=== PATIENT | male | born 1965 | race Caucasian/White ===

== ENCOUNTER 2016-09-30 10:52 | Emergency (ER) | payer OTHER ==
[~2016-09-30] VITALS: Ht 172.7 cm; Wt 69.5 kg
[2016-09-30] MEDS ORDERED: KETOROLAC 60 MG/2 ML VIAL (J1885) IM ONE (11:30)
[2016-09-30] MEDS ORDERED: NAPR500T3 PO (12:07)
[2016-09-30] MEDS ORDERED: TYLE325T5 PO (12:08)
[2016-09-30 12:45] VITALS: BP 149/94
--- NOTE | 2016-10-02 16:04 | REP ---
PA CHEST WITH RIGHT RIBS: 09/30/2016: Clinical history: Right-sided rib pain. Findings. No prior study. PA chest: Lungs are well inflated. The CP angles sharply defined. There is no effusion, infiltrate, atelectasis or mass. Minor apical scarring noted. Heart, mediastinal, hilar contours normal. Airway intact. Visualized bones show no acute finding. Right ribs: Four views of the right ribs show posterior rib articulations, visualized thoracic spine, clavicle, scapula and humerus without fracture or focal lesion. The abnormality with rib contours grossly intact as visible on all projections. No effusion or pneumothorax. Impression: 1. There is no visible or displaced rib fracture, focal rib lesion, effusion or pneumothorax. Posterior articulations are intact and minor degenerative changes at the AC joint. 2. PA chest with no acute finding. Signed by Spencer Thornton MD 10/02/2016 05:11 P
== END 2016-09-30 12:43 | disposition home or self-care (01) ==
LOC: M ED 10:52
DX: M94.0 Chondrocostal junction syndrome [Tietze] (principal); Z72.0 Tobacco use
CPT/HCPCS: 71101; 94010; 96372; 99282; J1885

== ENCOUNTER 2020-05-04 12:23 | Emergency (ER) | payer OTHER ==
[~2020-05-04] VITALS: Ht 177.8 cm; Wt 67.8 kg
[~2020-05-04 12:23] MED LIST: NAPR-885 PO; TYLE325T5 PO
[2020-05-04] MEDS ORDERED: ISOVUE-370 76% 100ML VIAL As Ordered ONE (13:18)
[2020-05-04 13:30] LABS: BASO # 0.1 10^3/uL (0.0-0.2); BASO % 1.6 % (0.0-1.0); EOS # 0.1 10^3/uL (0.0-0.5); EOS % 1.8 % (0.0-3.0); HEMATOCRIT 41.6 % (42.0-52.0); HEMOGLOBIN 14.7 g/dl (13.5-17.5); LYMPH # 1.5 10^3/uL (1.5-5.0); LYMPH % 27.4 % (24.0-44.0); MEAN CORPUSCULAR HEMOGLOBIN 35.1 pg (27.0-33.0); MEAN CORPUSCULAR HGB CONC 35.3 g/dl (32.0-36.5); MEAN CORPUSCULAR VOLUME 99.3 fl (80.0-96.0); MONO # 0.8 10^3/uL (0.0-0.8); PLATELET COUNT, AUTOMATED 205 10^3/uL (150-450); RED BLOOD COUNT 4.19 10^6/uL (4.30-6.10); WHITE BLOOD COUNT 5.5 10^3/uL (4.0-10.0)
--- NOTE | 2020-05-04 13:44 | REP ---
INDICATION: flank pain. COMPARISON: None. TECHNIQUE: Helical scanning was acquired and 4 mm axial images are re-formatted. Coronal and sagittal MPR images were generated and reviewed. The contrast enhancement dose is 100 mL of intravenous Isovue 370. 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 Lung bases are clear on axial CT images. There is no evidence of pleural effusion or upper abdominal ascites. There is mild diffuse fatty infiltration of the liver. No focal liver lesion is seen. Liver size is borderline. The spleen is normal in size homogeneous in texture. Normal adrenal glands are observed bilaterally. No abnormality is noted in the pancreas or the gallbladder. No retroperitoneal mass or adenopathy is seen. The kidneys enhance symmetrically and are morphologically intact. No retroperitoneal mass or adenopathy is seen. No hydronephrosis is observed. Pelvic CT images show dystrophic calcifications in the prostate gland. Seminal vesicles and urinary bladder are unremarkable. A normal appendix is seen in the right lower quadrant. No abdominal wall defect is seen. No bony destructive lesion is observed. Small and large bowel loops are unremarkable in the abdomen and pelvis. IMPRESSION: Fatty infiltration of the liver. Borderline liver size. Dystrophic calcifications in the prostate. Otherwise normal CT abdomen and pelvis with IV contrast. <Electronically signed by Reno José > 05/04/20 [id number]
[2020-05-04 13:58] LABS: ALBUMIN 3.9 GM/DL (3.2-5.2); ALT/SGPT 76 U/L (12-78); BILIRUBIN,DIRECT 0.3 MG/DL (0.0-0.2); ETHYL ALCOHOL (ETHANOL) < 0.003 % (0.000-0.010); LIPASE 119 U/L (73-393)
[2020-05-04] MEDS ORDERED: ZOFR4TAB16 PO (14:09)
[2020-05-04] MEDS ORDERED: PROT1TAB2 PO (14:09)
[2020-05-04 14:27] VITALS: BP 144/99
== END 2020-05-04 14:25 | disposition home or self-care (01) ==
LOC: M ED 12:23
DX: K52.9 Noninfective gastroenteritis and colitis, unspecified (principal); Z79.899 Other long term (current) drug therapy
CPT/HCPCS: 36415; 74177; 80047; 80076; 81001; 82077; 83690; 85025; 99284; Q9967

== ENCOUNTER → 2023-04-25 | Outpatient (CLI) | payer OTHER ==
[~2023-04-25] MED LIST changes: +PROT1TAB2 PO; +ZOFR4TAB16 PO
[2023-04-25 12:57] LABS: BASO # 0.1 10^3/uL (0.0-0.2); BASO % 1.5 % (0.0-1.0); EOS # 0.3 10^3/uL (0.0-0.5); EOS % 5.2 % (0.0-3.0); HEMATOCRIT 39.7 % (42.0-52.0); HEMOGLOBIN 14.3 g/dl (13.5-17.5); LYMPH # 1.8 10^3/uL (1.5-5.0); LYMPH % 34.1 % (24.0-44.0); MEAN CORPUSCULAR HEMOGLOBIN 35.6 pg (27.0-33.0); MEAN CORPUSCULAR VOLUME 98.8 fl (80.0-96.0); MONO # 0.6 10^3/uL (0.0-0.8); MONO % 11.9 % (2.0-8.0); NEUTROPHILS # 2.4 10^3/uL (1.5-8.5); NEUTROPHILS % 47.1 % (36.0-66.0); PLATELET COUNT, AUTOMATED 175 10^3/uL (150-450); RED BLOOD COUNT 4.02 10^6/uL (4.30-6.10); WHITE BLOOD COUNT 5.2 10^3/uL (4.0-10.0)
[2023-04-25 13:11] LABS: HEMOGLOBIN A1c 4.9 % (4.0-6.0)
[2023-04-25 13:33] LABS: PSA SCREENING 0.92 NG/ML (< 4.00)
[2023-04-25 13:36] LABS: THYROID STIMULATING HORMONE 1.208 uIU/ML (0.55-4.78)
[2023-04-25 13:37] LABS: FREE T4 0.91 NG/DL (0.89-1.76)
[2023-04-25 13:38] LABS: LIPASE 37 U/L (12-53)
[2023-04-25 14:08] LABS: ALBUMIN 3.1 G/DL (3.2-5.2); ALKALINE PHOSPHATASE 114 U/L (46-116); ALT/SGPT 71 U/L (7.0-40); AST/SGOT 80 U/L (<34); BILIRUBIN,DIRECT 0.2 MG/DL (<0.4); BILIRUBIN,TOTAL 0.6 MG/DL (0.3-1.2); BLOOD UREA NITROGEN 16 MG/DL (9-23); CALCIUM LEVEL 8.6 MG/DL (8.5-10.1); CARBON DIOXIDE LEVEL 25 MMOL/L (20-31); CHLORIDE LEVEL 106 MMOL/L (98-107); CHOLESTEROL LEVEL 474 MG/DL (<200); CHOLESTEROL RISK RATIO 17.49 (<5); CREATININE FOR GFR 0.94 MG/DL (0.70-1.30); GLOMERULAR FILTRATION RATE > 60.0 (>56); GLUCOSE, FASTING 75 MG/DL (60-100); HDL CHOLESTEROL 27.1 MG/DL (>40); NON-HDL-C 446.9 MG/DL; POTASSIUM SERUM 4.3 MMOL/L (3.5-5.1); SODIUM LEVEL 138 MMOL/L (136-145); TOTAL PROTEIN 5.7 G/DL (5.7-8.2); TRIGLYCERIDES LEVEL 2738 MG/DL (<150)
== END ==
LOC: M LAB 11:44
PROVIDERS: ATTEND Physician Assistant
DX: R10.32 Left lower quadrant pain (principal); Z13.29 Encounter for screening for other suspected endocrine disorder; Z13.220 Encounter for screening for lipoid disorders; Z12.5 Encounter for screening for malignant neoplasm of prostate
CPT/HCPCS: 36415; 80048; 80061; 80076; 83036; 83690; 84439; 84443; 85025; G0103

== ENCOUNTER → 2023-05-25 | Outpatient (CLI) | payer OTHER ==
[~2023-05-25] MED LIST changes: +GASTROGRAFIN SOLUTION 30ML As Ordered ONE; +ISOVUE-370 76% 100ML VIAL As Ordered ONE
== END ==
LOC: M RAD 12:24
PROVIDERS: ATTEND Physician Assistant
DX: R91.8 Other nonspecific abnormal finding of lung field (principal); R10.32 Left lower quadrant pain; M47.9 Spondylosis, unspecified
CPT/HCPCS: 71271; 74177; Q9963; Q9967

== ENCOUNTER 2023-07-13 06:53 | Day surgery (SDC) | payer OTHER ==
[~2023-07-13] VITALS: Ht 172.7 cm; Wt 66.4 kg
[~2023-07-13 06:53] MED LIST changes: +APPLCAP PO; +FENO200C23 PO; -GASTROGRAFIN SOLUTION 30ML As Ordered ONE; -ISOVUE-370 76% 100ML VIAL As Ordered ONE; +LOSA50TA28 PO; +OMEP-173 PO; +RA G580C PO; +ROSU20TA61 PO
[2023-07-13] MEDS: NS 1,000 ML IV ONE (07:30)
[2023-07-13] MEDS ORDERED: fentaNYL 100 MCG/2 ML INJECTION As Ordered ONE (07:51)
[2023-07-13] MEDS ORDERED: propofoL 200 MG/20 ML VIAL As Ordered ONE (07:52)
[2023-07-13] MEDS ORDERED: LIDOCAINE 2% 100MG/5ML SDV (FOR ANES.) As Ordered ONE (07:52)
[2023-07-13] MEDS ORDERED: GLYCOPYRROLATE INJ 0.2 MG/ML 2 ML VIAL As Ordered ONE (07:52)
[2023-07-13 09:05] VITALS: BP 114/85; TEMP 96.9; O2SAT 98
== END 2023-07-13 09:10 | disposition home or self-care (01) ==
LOC: M OPP 06:53
PROVIDERS: ATTEND Surgery
DX: K29.81 Duodenitis with bleeding (principal); K21.01 Gastro-esophageal reflux disease with esophagitis, with bleeding; D12.4 Benign neoplasm of descending colon; K64.1 Second degree hemorrhoids; K44.9 Diaphragmatic hernia without obstruction or gangrene; R10.13 Epigastric pain; I10 Essential (primary) hypertension; E78.00 Pure hypercholesterolemia, unspecified; F41.9 Anxiety disorder, unspecified; Z79.899 Other long term (current) drug therapy; F17.210 Nicotine dependence, cigarettes, uncomplicated
CPT/HCPCS: 43239; 45380; 88305; J3010

== ENCOUNTER → 2023-08-29 | Outpatient (CLI) | payer OTHER ==
[2023-08-29 09:35] LABS: BASO # 0.1 10^3/uL (0.0-0.2); BASO % 1.6 % (0.0-1.0); EOS # 0.3 10^3/uL (0.0-0.5); EOS % 5.6 % (0.0-3.0); HEMATOCRIT 41.1 % (42.0-52.0); HEMOGLOBIN 14.1 g/dl (13.5-17.5); LYMPH # 1.9 10^3/uL (1.5-5.0); MEAN CORPUSCULAR HEMOGLOBIN 35.3 pg (27.0-33.0); MEAN CORPUSCULAR HGB CONC 34.3 g/dl (32.0-36.5); MONO # 0.6 10^3/uL (0.0-0.8); NEUTROPHILS # 2.1 10^3/uL (1.5-8.5); NEUTROPHILS % 42.6 % (36.0-66.0); PLATELET COUNT, AUTOMATED 163 10^3/uL (150-450); RED BLOOD COUNT 3.99 10^6/uL (4.30-6.10)
[2023-08-29 10:04] LABS: ALBUMIN 3.4 G/DL (3.2-5.2); ALKALINE PHOSPHATASE 106 U/L (46-116); ALT/SGPT 57 U/L (7.0-40); AST/SGOT 76 U/L (<34); BILIRUBIN,TOTAL 0.5 MG/DL (0.3-1.2); BLOOD UREA NITROGEN 20 MG/DL (9-23); CARBON DIOXIDE LEVEL 28 MMOL/L (20-31); CHLORIDE LEVEL 110 MMOL/L (98-107); CHOLESTEROL LEVEL 172 MG/DL (<200); CREATININE FOR GFR 1.24 MG/DL (0.70-1.30); GLOMERULAR FILTRATION RATE > 60.0 (>56); GLUCOSE, FASTING 78 MG/DL (60-100); HDL CHOLESTEROL 31.8 MG/DL (>40); NON-HDL-C 140.2 MG/DL; POTASSIUM SERUM 4.2 MMOL/L (3.5-5.1); SODIUM LEVEL 143 MMOL/L (136-145); TOTAL PROTEIN 5.9 G/DL (5.7-8.2); TRIGLYCERIDES LEVEL 765 MG/DL (<150)
[2023-08-29 10:24] LABS: HEPATITIS B SURFACE ANTIGEN NEGATIVE (NEGATIVE)
[2023-08-29 10:45] LABS: HEPATITIS B CORE ANTIBODY IGM NEGATIVE (NEGATIVE); HEPATITIS C VIRUS ABY INDEX < 0.02 INDEX (<0.8)
== END ==
LOC: M LAB 09:01
PROVIDERS: ATTEND Physician Assistant
DX: E78.2 Mixed hyperlipidemia (principal); R74.01 Elevation of levels of liver transaminase levels

== ENCOUNTER → 2024-05-20 | Outpatient (CLI) | payer OTHER ==
[~2024-05-20] MED LIST changes: +GARL580C PO; -RA G580C PO; -ROSU20TA61 PO; +ROSU20TA86 PO
== END ==
LOC: M RAD 07:04
DX: K76.0 Fatty (change of) liver, not elsewhere classified (principal); K22.70 Barrett's esophagus without dysplasia; Z86.0101 Personal history of adenomatous and serrated colon polyps

== ENCOUNTER → 2024-06-12 | Outpatient (CLI) | payer OTHER | LOC: M RAD 15:25 | PROVIDERS: ATTEND Physician Assistant | DX: Z12.2 Encounter for screening for malignant neoplasm of respiratory organs (principal); F17.210 Nicotine dependence, cigarettes, uncomplicated; R91.8 Other nonspecific abnormal finding of lung field; I25.10 Atherosclerotic heart disease of native coronary artery without angina pectoris; I70.0 Atherosclerosis of aorta ==

== ENCOUNTER → 2024-10-01 | Outpatient (CLI) | payer OTHER ==
[2024-10-01 12:35] LABS: BASO # 0.1 10^3/uL (0.0-0.2); BASO % 1.8 % (0.0-1.0); EOS # 0.3 10^3/uL (0.0-0.5); EOS % 7.4 % (0.0-3.0); LYMPH # 1.0 10^3/uL (1.5-5.0); LYMPH % 30.3 % (24.0-44.0); MONO # 0.5 10^3/uL (0.0-0.8); MONO % 14.4 % (2.0-8.0); NEUTROPHILS # 1.6 10^3/uL (1.5-8.5); NEUTROPHILS % 45.8 % (36.0-66.0); PLATELET COUNT, AUTOMATED 143 10^3/uL (150-450)
[2024-10-01 12:44] LABS: ESTIMATED AVERAGE GLUCOSE 108.0 MG/DL (60-110)
[2024-10-01 13:03] LABS: PSA SCREENING 2.63 NG/ML (< 4.00)
[2024-10-01 13:05] LABS: ALT/SGPT 46.0 U/L (7.0-40); AST/SGOT 52.0 U/L (<34); CALCIUM LEVEL 9.1 MG/DL (8.5-10.1); CARBON DIOXIDE LEVEL 26.0 MMOL/L (20-31); CHLORIDE LEVEL 109.0 MMOL/L (98-107); CHOLESTEROL LEVEL 190.0 MG/DL (<200); CHOLESTEROL RISK RATIO 3.06 (<5); CREATININE FOR GFR 1.05 MG/DL (0.70-1.30); GLOMERULAR FILTRATION RATE 82.8 (>56); LDL CHOLESTEROL 111.3 MG/DL (<100); NON-HDL-C 128.1 MG/DL; POTASSIUM SERUM 4.4 MMOL/L (3.5-5.1); SODIUM LEVEL 144.0 MMOL/L (136-145); TRIGLYCERIDES LEVEL 84.0 MG/DL (<150)
[2024-10-01 13:07] LABS: FREE T4 1.07 NG/DL (0.89-1.76)
== END ==
LOC: M LAB 11:21
PROVIDERS: ATTEND Physician Assistant
DX: E78.2 Mixed hyperlipidemia (principal); I25.10 Atherosclerotic heart disease of native coronary artery without angina pectoris; R35.1 Nocturia; Z13.29 Encounter for screening for other suspected endocrine disorder
CPT/HCPCS: 36415; 80053; 80061; 83036; 84439; 84443; 85025; G0103

== ENCOUNTER → 2024-10-01 | Outpatient (CLI) | payer OTHER ==
[2024-10-01 13:07] LABS: INR 0.95
[2024-10-01 13:19] LABS: ALT/SGPT 43 U/L (7.0-40); AST/SGOT 51 U/L (<34); IRON (FE) 123 UG/DL (65-175); PERCENT SATURATION 31.9 % (19.7-50.0)
[2024-10-01 13:27] LABS: HEPATITIS B SURFACE ANTIBODY NEGATIVE (POSITIVE)
[2024-10-01 13:58] LABS: HEPATITIS C VIRUS ABY INDEX < 0.02 INDEX (<0.8)
[2024-10-02 07:41] LABS: T P ELECTROPHORESIS SO 6.7 g/dL (6.1-8.1)
[2024-10-02 14:20] LABS: HEPATITIS A IgG TOTAL REACTIVE (NON-REACTIVE)
[2024-10-03 12:26] LABS: ANTI SMITH(Sm) AB <1.0 NEG AI (<1.0 NEG)
[2024-10-03 13:38] LABS: CERULOPLASMIN 22.0 mg/dL (14-30)
[2024-10-03 15:01] LABS: ANTI-MITOCHONDRIAL ANTIBODY NEGATIVE (NEGATIVE)
[2024-10-03 15:24] LABS: ANGIOTENSIN 1 CONVERTING ENZYM 94 U/L (9-67)
[2024-10-06 07:51] LABS: ALBUMIN SPEP 4.3 g/dL (3.8-4.8); ALPHA-1-GLOBULINS SO 0.3 g/dL (0.2-0.3); ALPHA-2-GLOBULINS SO 0.6 g/dL (0.5-0.9); BETA 2 GLOBULIN 0.3 g/dL (0.2-0.5); BETA-GLOBULIN SO 0.5 g/dL (0.4-0.6); GAMMA GLOBULINS SO 0.7 g/dL (0.8-1.7)
[2024-10-06 15:18] LABS: LIVER-KIDNEY MICROSOMAL ABY <= 20.0 U (<=20.0)
== END ==
LOC: M LAB 11:26
DX: K76.0 Fatty (change of) liver, not elsewhere classified (principal); K22.70 Barrett's esophagus without dysplasia; Z86.0109 Personal history of other colon polyps
CPT/HCPCS: 36415; 80053; 80061; 82105; 82164; 82390; 82728; 83036; 83550; 84155; 84165; 84439; 84443; 85025; 85610; 85730; 86038; 86235; 86255; 86364; 86376; 86706; 86708; 86709; 86803; 87340; G0103

== ENCOUNTER 2024-11-26 08:04 | Emergency (ER) | payer OTHER ==
[2024-11-26] MEDS ORDERED: SUCCINYLCHOLINE 100MG/5ML SYRINGE ONE (08:05)
[2024-11-26 08:12] VITALS: O2SAT 100
[2024-11-26] MEDS: ETOMIDATE 20 MG/10 ML VIAL IV STA (08:12)
[2024-11-26] MEDS: SUCCINYLCHOLINE INJ 200MG/10ML VIAL IV STA (08:12)
[2024-11-26] MEDS: LIDOCAINE 2% 5 ML JELLY UROJET TOP ONE (08:20)
[2024-11-26 08:34] LABS: BASO # 0.1 10^3/uL (0.0-0.2); BASO % 1.0 % (0.0-1.0); EOS # 0.3 10^3/uL (0.0-0.5); EOS % 2.4 % (0.0-3.0); LYMPH # 3.6 10^3/uL (1.5-5.0); LYMPH % 32.8 % (24.0-44.0); MONO # 0.9 10^3/uL (0.0-0.8); MONO % 8.0 % (2.0-8.0); NEUTROPHILS # 5.8 10^3/uL (1.5-8.5); NEUTROPHILS % 52.6 % (36.0-66.0); PLATELET COUNT, AUTOMATED 119 10^3/uL (150-450)
[2024-11-26] MEDS: AMIODARONE HCL 360 MG in IV 1 EA IV SCH (08:36)
[2024-11-26] MEDS: CLOPIDOGREL 300 MG TAB NG ONE (08:40)
[2024-11-26 08:51] LABS: ABG pH (ARTERIAL) 7.310 UNITS (7.350-7.450)
[2024-11-26 08:52] LABS: ABG BASE EXCESS -8.8 (-2.0-2.0); ABG HCO3 16.2 MMOL/L (22.0-26.0); ABG O2 SATURATION 91.7 % (95.0-99.0); ABG PARTIAL PRESSURE CO2 33.0 mmHg (35.0-45.0); ABG PARTIAL PRESSURE O2 72.7 mmHg (75.0-100.0); ABG STANDARD HCO3 17.5 MMOL/L. (22.0-26.0); ABG TOTAL CO2 17.3 MMOL/L (22.0-29.0)
[2024-11-26] MEDS: HEPARIN SOD 5000 UNITS/ML 1 ML VIAL/SYRINGE IV ONE (08:59)
[2024-11-26 09:00] LABS: CK-MB VALUE MASS 230.8 NG/ML (<3.6); ETHYL ALCOHOL (ETHANOL) 0.103 % (0.000-0.010)
[2024-11-26] MEDS: HEPARIN DRIP 25,000 UNITS in IV 1 EA IV SCH (09:00)
[2024-11-26 09:01] LABS: SALICYLATE LEVEL < 3.0 MG/DL (<30)
[2024-11-26 09:02] LABS: ALT/SGPT 160 U/L (7.0-40); AST/SGOT 396 U/L (<34); CALCIUM LEVEL 8.6 MG/DL (8.5-10.1); CARBON DIOXIDE LEVEL 16 MMOL/L (20-31); CHLORIDE LEVEL 110 MMOL/L (98-107); CREATININE FOR GFR 0.95 MG/DL (0.70-1.30); GLOMERULAR FILTRATION RATE > 90.0 (>56); POTASSIUM SERUM 3.5 MMOL/L (3.5-5.1); SODIUM LEVEL 141 MMOL/L (136-145)
[2024-11-26] MEDS: TENECTEPLASE 50 MG/10 ML VIAL IV STA (09:06)
[2024-11-26 09:07] LABS: OSMOLALITY SERUM 326 MOSM/KG (275-295)
[2024-11-26] MEDS: ASPIRIN 300 MG SUPP PR STA (09:11)
[2024-11-26 09:27] VITALS: O2SAT 95
[2024-11-26 09:33] VITALS: BP 129/81; TEMP 97
[2024-11-26 09:40] LABS: CPK CREATINE PHOSPHOKINASE 1418 U/L (46-171); MB/CK RELATIVE INDEX 16.27 (< OR =4)
[2024-11-26] MEDS ORDERED: PROPOFOL 1,000 MG/100 ML VIAL As Ordered ONE (09:52)
== END 2024-11-26 09:40 | disposition short-term general hospital (02) ==
LOC: M ED 08:04
DX: I21.3 ST elevation (STEMI) myocardial infarction of unspecified site (principal); I49.01 Ventricular fibrillation; I10 Essential (primary) hypertension; E78.5 Hyperlipidemia, unspecified; F17.200 Nicotine dependence, unspecified, uncomplicated; F12.10 Cannabis abuse, uncomplicated; Z79.899 Other long term (current) drug therapy
CPT/HCPCS: 31500; 36600; 51702; 70450; 71045; 72125; 80048; 80076; 80143; 82077; 82140; 82550; 82553; 82803; 83605; 83735; 83930; 84443; 84484; 85025; 85730; 92950; 93005; 93041; 94002; 94760; 96365; 96366; 96368; 96375; 99291; 99292; J0282; J0330; J3101